=== PATIENT | female | born 2000 | race Caucasian/White ===

== ENCOUNTER 2018-01-25 21:39 | Emergency (ER) | payer BC ==
[2018-01-25] MEDS ORDERED: diphenhydrAMINE 50 MG/ML SDV IM ONE (21:54)
[2018-01-25] MEDS ORDERED: Ondansetron 4 MG Tab.DIS PO ONE (21:54)
--- NOTE | 2018-01-25 22:23 | EDM.PDOC ---
ED HPI GENERAL MEDICAL PROBLEM - General Chief Complaint: Allergic Reaction Stated Complaint: poss allergic reaction rice stuck in nose Time Seen by Provider: 01/25/18 22:00 Source of Information: Reports: Patient History Limitations: Reports: No Limitations - History of Present Illness INITIAL COMMENTS - FREE TEXT/NARRATIVE: 17-year-old female presents for evaluation treatment of a possible allergic reaction as well some rice stuck in her nose. [facility] She ate chicken and shrimp. She states that she did not feel well after eating. She went home and she vomited. She reports that she had food coming out of her nose. States his since this occurred she feels that her nose and sinuses are plugged. They attempted to do a nasal rinse but she continues to have discomfort. She is also complaining of right ear pain. Patient has not vomited in the last hour. She reports some abdominal discomfort that has now mostly improved. The nausea has also improved. No diarrhea. She denies any throat swelling or throat pain. No chest pain or shortness of breath. Treatments JOURNAL CLERK: Reports: Other (see below) Other Treatments JOURNAL CLERK: none - Related Data Allergies Allergy/AdvReac Type Severity Reaction Status Date / Time No Known Allergies Allergy Verified 01/25/18 21:51 Home Meds: Home Meds Ondansetron [Zofran ODT] 4 mg PO Q6H PRN #20 tab.dis 01/25/18 [Rx] Past Medical History Musculoskeletal History: Reports: Other (See Below) Other Musculoskeletal History: 2 foot surgeries - Past Surgical History HEENT Surgical History: Reports: Tonsillectomy Social & Family History - Tobacco Use Smoking Status *Q: Never Smoker - Caffeine Use Caffeine Use: Reports: Coffee - Recreational Drug Use Recreational Drug Use: No ED ROS ALLERGIC REACTION - Review of Systems Review Of Systems: See Below HEENT: Reports: Ear Pain (right), Sinus Problem (discomfort and pressure), Throat Pain. Denies: Throat Swelling Respiratory: Denies: Shortness of Breath, Cough Cardiovascular: Denies: Chest Pain GI/Abdominal: Reports: Abdominal Pain (epigastric, upper abdomen), Vomiting. Denies: Diarrhea ED EXAM GENERAL NO PERIP PULSE - Physical Exam Exam: See Below Exam Limited By: No Limitations General Appearance: Alert, WD/WN, Anxious, Mild Distress Eye Exam: Bilateral Eye: Normal Inspection Ears: Normal External Exam, Other (right TM perforation to the9 o'clock to the 12 o'clock position) Nose: Normal Inspection, Other (swollen nasal turbinates) Throat/Mouth: Normal Inspection, Normal Lips, Normal Oropharynx, Normal Voice, No Airway Compromise, Other (no uvula swelling) Neck: Normal Inspection Respiratory/Chest: No Respiratory Distress, Lungs Clear, Normal Breath Sounds Cardiovascular: Normal Peripheral Pulses, Regular Rate, Rhythm, No Murmur GI/Abdominal: Normal Bowel Sounds, Soft, Non-Tender Neurological: Alert, Oriented, Normal Cognition Psychiatric: Normal Affect, Normal Mood Skin Exam: Warm, Dry, Normal Color Course - Vital Signs Last Recorded V/S: Last Vital Signs Temp 36.9 C 01/25/18 21:49 Pulse 60 01/25/18 23:07 Resp 18 01/25/18 23:07 BP 113/86 01/25/18 23:07 Pulse Ox 99 01/25/18 23:07 - Orders/Labs/Meds Meds: Medications Discontinued Medications Generic Name Dose Route Start Last Admin Trade Name Ute PRN Reason Stop Dose Admin Diphenhydramine HCl 50 mg 01/25/18 21:54 01/25/18 22:07 Benadryl IM 01/25/18 21:55 50 mg ONETIME ONE Administration Ondansetron HCl 4 mg 01/25/18 21:54 01/25/18 22:07 Zofran Odt PO 01/25/18 21:55 4 mg ONETIME ONE Administration - Re-Assessments/Exams Free Text/Narrative Re-Assessment/Exam: 01/25/18 22:50 I checked on the patient. She has not had much relief with the Benadryl as far as the discomfort to her sinuses. Nausea has improved. She has some mild discomfort in her abdomen she feels like she might have some diarrhea-like stools. I feel the nausea, vomiting and diarrhea is likely food poisoning than a food intolerance but time will tell she develops any diarrhea with this. She has some lettuce with her meal and there has been an outbreak of Escherichia coli with lettuce. Will give her some Zofran to help with the nausea encourage clear fluids and a bland diet. She does have small rupture of her right tympanic membrane at the very top of her ear. I will have her follow-up with family medicine for recheck of this week. Also to determine if she is developing anything like a sinus infection or if she does have any retained foreign bodies (ie rice) in the nares. At the time I cannot see past her swollen turbinates. Encouraged to use ibuprofen help with the swelling. She may also use Benadryl. Discharge instructions as documented. Departure - Departure Time of Disposition: 22:51 Disposition: Home, Self-Care 01 Condition: Fair Clinical Impression: Vomiting - Discharge Information Prescriptions: Ondansetron [Zofran ODT] 4 mg PO Q6H PRN #20 tab.dis PRN Reason: Nausea Instructions: Vomiting, Adult Referrals: PCP,None [Primary Care Provider] - Alyse Maddox PA-C [Physician Corporate Safety Director] - Forms: ED Department Discharge Additional Instructions: Take the Zofran 1 tab sublingual every 6-8 hours as needed for nausea. May also use [id number] ibuprofen or Benadryl as needed for discomfort and swelling. Clear fluids and a bland diet as tolerated. Iron diet recommendations include bread, applesauce, soup broth, crackers, etc. Follow-up with family medicine later this week for recheck of your ear, nose and sinuses. Recommend Deepthi Stratton at the [facility]. Call [phone] to schedule an appointment with her. Please return to the ER if your symptoms change or worsen.
== END 2018-01-25 23:00 | disposition home or self-care (01) ==
LOC: JD.ED 21:39
DX: R11.10 Vomiting, unspecified (principal)
CPT/HCPCS: 96372; 99283; A9270; J1200

== ENCOUNTER 2021-01-15 13:32 | Emergency (ER) | payer BC ==
--- NOTE | 2021-01-15 15:22 | EDM.PDOC ---
ED HPI GENERAL MEDICAL PROBLEM - General Chief Complaint: Neuro Symptoms/Deficits Stated Complaint: BODY TINGLES/NUMBNESS Time Seen by Provider: 01/15/21 13:55 Source of Information: Reports: Patient, RN Notes Reviewed - History of Present Illness INITIAL COMMENTS - FREE TEXT/NARRATIVE: 20 yr old female with onset of numbness and tingling hips and bilat lower extrem yesterday, today the numbness and tingling is up to her upper chest and back. She did see her chiropractor this morning, has multiple "adjustents" but that has not helped. No focal weakness. No difficulty walking. No fever, chills, Trejo, nausea or vomiting. Right Neck Pain Score (Numeric/FACES): 3 - Related Data Allergies Allergy/AdvReac Type Severity Reaction Status Date / Time acetaminophen [From Percocet] Allergy Severe Hives Verified 01/15/21 13:53 adhesive Allergy Severe Hives Verified 01/15/21 13:49 aluminum Allergy Severe Hives Verified 01/15/21 13:53 cefdinir Allergy Severe Hives Verified 01/15/21 13:53 cyclobenzaprine Allergy Severe Hives Verified 01/15/21 13:49 [From Flexeril] ibuprofen Allergy Severe Hives Verified 01/15/21 13:49 oxycodone [From Percocet] Allergy Severe Hives Verified 01/15/21 13:53 shellfish derived Allergy Severe Anaphylactic Verified 01/15/21 13:49 Shock zinc Allergy Severe Hives Verified 01/15/21 13:49 Home Meds: Home Meds Ascorbate Calcium [Vitamin C] 500 mg PO DAILY 01/15/21 [History] Cholecalciferol (Vitamin D3) [Vitamin D] 5,000 unit PO DAILY 01/15/21 [History] EPINEPHrine [Epipen] 0.3 mg IM ASDIRECTED PRN 01/15/21 [History] Loratadine [Claritin] 10 mg PO DAILY 01/15/21 [History] Mv-Min/Iron/Folic/Calcium/Vitk [Women's Multivitamin Tablet] 1 tab PO DAILY 01/15/21 [History] Vitamin B Complex 1 each PO DAILY 01/15/21 [History] desogestreL-ethinyl estradioL [Desogest-Eth Estra 0.15-0.03MG] 1 each PO DAILY 01/15/21 [History] Past Medical History Musculoskeletal History: Reports: Other (See Below) Other Musculoskeletal History: 2 foot surgeries Endocrine/Metabolic History: Reports: Obesity/BMI 30+ - Past Surgical History HEENT Surgical History: Reports: Tonsillectomy GI Surgical History: Reports: Cholecystectomy Musculoskeletal Surgical History: Reports: Other (See Below) Other Musculoskeletal Surgeries/Procedures:: 2 foot surgeries Social & Family History - Tobacco Use Tobacco Use Status *Q: Never Tobacco User - Caffeine Use Caffeine Use: Reports: Coffee - Recreational Drug Use Recreational Drug Use: No ED ROS GENERAL - Review of Systems Review Of Systems: See Below Constitutional: Denies: Fever, Chills, Malaise, Weakness HEENT: Reports: No Symptoms Respiratory: Denies: Shortness of Breath, Cough Cardiovascular: Denies: Chest Pain GI/Abdominal: Denies: Abdominal Pain, Diarrhea, Nausea, Vomiting Musculoskeletal: Denies: Leg Pain Skin: Denies: Rash Neurological: Reports: Numbness, Tingling. Denies: Trouble Speaking, Difficulty Walking, Weakness ED EXAM, NEURO - Physical Exam Exam: See Below General Appearance: Alert, No Apparent Distress Eye Exam: Bilateral Eye: PERRL Throat/Mouth: Normal Inspection, Normal Oropharynx Head Exam: Atraumatic Neck: Supple Respiratory/Chest: No Respiratory Distress, Lungs Clear, Normal Breath Sounds Cardiovascular: Regular Rate, Rhythm GI/Abdominal: Soft, Non-Tender Neurological: Alert, No Motor/Sensory Deficits, Oriented x 3 Extremities: Normal Inspection, Normal Range of Motion, No Pedal Edema Skin Exam: Warm, Dry, Normal Color, No Rash Course - Vital Signs Last Recorded V/S: Last Vital Signs Temp 97.9 F 01/15/21 13:45 Pulse 78 01/15/21 13:45 Resp 16 01/15/21 13:45 BP 150/95 H 01/15/21 13:45 Pulse Ox 99 01/15/21 13:45 - Orders/Labs/Meds Labs: Laboratory Tests 01/15/21 01/15/21 Range/Units 14:36 14:36 WBC 9.41 (3.98-10.04) K/mm3 RBC 5.05 (3.98-5.22) M/mm3 Hgb 14.4 (11.2-15.7) gm/dl Hct 41.5 (34.1-44.9) % MCV 82.2 (79.4-94.8) fl MCH 28.5 (25.6-32.2) pg MCHC 34.7 (32.2-35.5) g/dl RDW Std Deviation 43.2 (36.4-46.3) fL Plt Count 394 H (182-369) K/mm3 MPV 8.6 L (9.4-12.3) fl Neut % (Auto) 62.3 (34.0-71.1) % Lymph % (Auto) 30.3 (19.3-51.7) % [place] % (Auto) 6.6 (4.7-12.5) % Eos % (Auto) 0.5 L (0.7-5.8) Baso % (Auto) 0.2 (0.1-1.2) % Neut # (Auto) 5.86 (1.56-6.13) K/mm3 Lymph # (Auto) 2.85 (1.18-3.74) K/mm3 [place] # (Auto) 0.62 H (0.24-0.36) K/mm3 Eos # (Auto) 0.05 (0.04-0.36) K/mm3 Baso # (Auto) 0.02 (0.01-0.08) K/mm3 Sodium 140 (136-145) mEq/L Potassium 3.4 L (3.5-5.1) mEq/L Chloride 103 (98-107) mEq/L Carbon Dioxide 26 (21-32) mEq/L Anion Gap 14.4 (5-15) BUN 8 (7-18) mg/dL Creatinine 0.8 (0.55-1.02) mg/dL Est Cr Clr Drug Dosing 91.24 mL/min Estimated GFR (MDRD) > 60 (>60) mL/min BUN/Creatinine Ratio 10.0 L (14-18) Glucose 90 (74-106) mg/dL Calcium 8.8 (8.5-10.1) mg/dL Magnesium 2.5 H (1.8-2.4) mg/dl Total Bilirubin 0.4 (0.2-1.0) mg/dL AST 20 (15-37) U/L ALT 24 (14-59) U/L Alkaline Phosphatase 67 (46-116) U/L Total Protein 7.8 (6.4-8.2) g/dl Albumin 3.1 L (3.4-5.0) g/dl Globulin 4.7 gm/dL Albumin/Globulin Ratio 0.7 L (1-2) Departure - Departure Time of Disposition: 15:20 Disposition: Home, Self-Care 01 Condition: Fair Clinical Impression: Paresthesia - Discharge Information Instructions: Paresthesia, [id number] Referrals: PCP,None [Primary Care Provider] - Forms: ED Department Discharge Additional Instructions: Your potassium was mildly low at 3.4, normal 3.5 to 5.0. Bananas and other fruit and vegetables are a good source of potassium. Try eat or 1 or 2 bananas daily the remainder of this week. Follow up clinic if not better within 1 to 2 days as expected or return to ED as needed if symptoms worsening in any way. Sepsis Event Note (ED) - Evaluation Sepsis Screening Result: No Definite Risk - Focused Exam Vital Signs: Vital Signs Temp Pulse Resp BP Pulse Ox 01/15/21 13:45 97.9 F 78 16 150/95 H 99
== END 2021-01-15 15:43 | disposition home or self-care (01) ==
LOC: JD.ED 13:32
DX: R20.2 Paresthesia of skin (principal); E66.9 Obesity, unspecified; Z88.1 Allergy status to other antibiotic agents; Z91.018 Allergy to other foods; Z88.5 Allergy status to narcotic agent; Z88.8 Allergy status to other drugs, medicaments and biological substances; Z68.31 Body mass index [BMI] 31.0-31.9, adult
CPT/HCPCS: 36415; 80053; 83735; 85025; 99282; 99284

== ENCOUNTER 2021-01-23 09:03 | Emergency (ER) | payer BC ==
--- NOTE | 2021-01-23 09:42 | EDM.PDOC ---
ED HPI GENERAL MEDICAL PROBLEM - General Chief Complaint: Headache Stated Complaint: HEADACHE/POST LUMBAR PUNCTURE Time Seen by Provider: 01/23/21 09:36 Source of Information: Reports: Patient History Limitations: Reports: No Limitations - History of Present Illness INITIAL COMMENTS - FREE TEXT/NARRATIVE: 20-year-old female presents to the ED for evaluation of a severe headache that is worsened when she stands up. Patient had a lumbar puncture performed on Friday, January 19 for multiple sclerosis. She they identified on MRI that she has signs and symptoms of MS. She therefore stayed in the hospital for pulse therapy with steroids using 1 g of Solu-Medrol daily. However within 2 days of starting therapy she broke out in hives and had an allergic response. They kept her in the hospital 1 more day and she was discharged yesterday. The ride home was awful in terms of sitting up caused increased headache nausea and vomiting. She is no better overnight. She is better if she is lying flat. Bright lights make her headache worse. Headache for the most part is bilateral and behind her eyes. Onset: Sudden Onset Date: 01/20/21 Duration: Hour(s):, Constant Location: Reports: Head (Throbbing pulsating headache primarily retro-ocular bilaterally.) Quality: Reports: Ache, Throbbing, Other (Pulsating.) Severity: Moderate Improves with: Reports: Rest (8 out of 10. Lying flat helps.) Worsens with: Reports: Other (Standing up and sitting up make the headache much worse. i.e. traction headache) Associated Symptoms: Reports: Headaches, Loss of Appetite, Malaise, Nausea/Vomiting, Weakness. Denies: No Other Symptoms, Confusion, Chest Pain, Cough, cough w sputum, Fever/Chills, Seizure, Shortness of Breath, Syncope Treatments HORSE RACER: Reports: Other (see below) Left Frontal Headache Pain Score (Numeric/FACES): 8 - Related Data Allergies Allergy/AdvReac Type Severity Reaction Status Date / Time acetaminophen [From Percocet] Allergy Severe Hives Verified 01/23/21 09:12 adhesive Allergy Severe Hives Verified 01/23/21 09:12 aluminum Allergy Severe Hives Verified 01/23/21 09:12 cefdinir Allergy Severe Hives Verified 01/23/21 09:12 cyclobenzaprine Allergy Severe Hives Verified 01/23/21 09:12 [From Flexeril] ibuprofen Allergy Severe Hives Verified 01/23/21 09:12 oxycodone [From Percocet] Allergy Severe Hives Verified 01/23/21 09:12 shellfish derived Allergy Severe Anaphylactic Verified 01/23/21 09:12 Shock zinc Allergy Severe Hives Verified 01/23/21 09:12 steroids Allergy Hives Uncoded 01/23/21 09:12 Home Meds: Home Meds Ascorbate Calcium [Vitamin C] 500 mg PO DAILY 01/15/21 [History] Cholecalciferol (Vitamin D3) [Vitamin D] 5,000 unit PO DAILY 01/15/21 [History] EPINEPHrine [Epipen] 0.3 mg IM ASDIRECTED PRN 01/15/21 [History] Loratadine [Claritin] 10 mg PO DAILY 01/15/21 [History] Mv-Min/Iron/Folic/Calcium/Vitk [Women's Multivitamin Tablet] 1 tab PO DAILY 01/15/21 [History] Vitamin B Complex 1 each PO DAILY 01/15/21 [History] desogestreL-ethinyl estradioL [Desogest-Eth Estra 0.15-0.03MG] 1 each PO DAILY 01/15/21 [History] Ondansetron [Zofran] 4 mg BUCCAL Q6H PRN #8 tab 01/23/21 [Rx] Past Medical History HEENT History: Reports: Impaired Vision Other HEENT History: wears eyeglasses. Genitourinary History: Reports: Pyelonephritis Musculoskeletal History: Reports: Other (See Below) Other Musculoskeletal History: 2 foot surgeries Neurological History: Reports: MS Endocrine/Metabolic History: Reports: Obesity/BMI 30+ - Infectious Disease History Infectious Disease History: Reports: Chicken Pox - Past Surgical History HEENT Surgical History: Reports: Tonsillectomy GI Surgical History: Reports: Cholecystectomy Musculoskeletal Surgical History: Reports: Other (See Below) Other Musculoskeletal Surgeries/Procedures:: 2 foot surgeries Social & Family History - Tobacco Use Tobacco Use Status *Q: Never Tobacco User Second Hand Smoke Exposure: No - Caffeine Use Caffeine Use: Reports: Coffee - Recreational Drug Use Recreational Drug Use: No - Living Situation & Occupation Living situation: Reports: Single Occupation: Student ED ROS GENERAL - Review of Systems Review Of Systems: See Below Constitutional: Reports: Malaise, Fatigue, Decreased Appetite. Denies: Fever, Chills, Weight Loss HEENT: Reports: No Symptoms Respiratory: Reports: No Symptoms Cardiovascular: Reports: No Symptoms Endocrine: Reports: Fatigue GI/Abdominal: Reports: Decreased Appetite, Nausea, Vomiting : Reports: No Symptoms Musculoskeletal: Reports: No Symptoms Skin: Reports: No Symptoms Neurological: Reports: Dizziness, Headache, Numbness, Pre-Existing Deficit, Tingling, Difficulty Walking, Weakness, Gait Disturbance (Recently diagnosed with multiple sclerosis.). Denies: Confusion, Paresthesia, Tremors, Trouble Speaking Psychiatric: Reports: No Symptoms Hematologic/Lymphatic: Reports: No Symptoms Immunologic: Reports: No Symptoms - Physical Exam Exam: See Below Exam Limited By: Other (Examined in a darkened room due to her severity of her headache. Vital signs show temperature 35.2. This is likely correct. Heart rate was 72 and sinus respiratory is 18 with O2 sats of 99% room air BP 131/76) General Appearance: Alert, Mild Distress, Other Eye Exam: Bilateral Eye: Normal Inspection, PERRL (No gaze palsy) Throat/Mouth: Normal Inspection, Normal Lips, Normal Teeth, Normal Oropharynx Head Exam: Atraumatic, Normocephalic Neck: Normal Inspection, Supple, Non-Tender, Full Range of Motion. No: Lymphadenopathy (L), Lymphadenopathy (R) Respiratory/Chest: No Respiratory Distress, Lungs Clear, Normal Breath Sounds, No Accessory Muscle Use Cardiovascular: Normal Peripheral Pulses, Regular Rate, Rhythm, No Edema, No Gallop, No Murmur, No Rub GI/Abdominal: Normal Bowel Sounds, Soft, Non-Tender, No Organomegaly, No Abnormal Bruit, No Mass, Pelvis Stable Neuro Exam (Abbreviated): Alert, Oriented, CN II-XII Intact, Normal Cognition. No: Normal Gait Back Exam: Normal Inspection, Other (No subcu swelling or signs of infection at the site of lumbar puncture) Extremities: Normal Inspection, Normal Range of Motion, Non-Tender, No Pedal Edema Psychiatric: Flat Affect Skin Exam: Warm, Dry, Intact, Normal Color, No Rash Course - Vital Signs Last Recorded V/S: Last Vital Signs Temp 35.2 C L 01/23/21 09:10 Pulse 72 01/23/21 09:10 Resp 18 01/23/21 09:10 BP 131/76 01/23/21 09:10 Pulse Ox 99 01/23/21 09:10 - Orders/Labs/Meds Orders: Active Orders 24 hr Category Date Time Status Dextrose 5%-0.9% NaCl [Dextrose 5%-Normal Saline] 1,000 Med 01/23/21 09:45 Active ml IV ASDIRECTED Dextrose 5%-0.9% NaCl [Dextrose 5%-Normal Saline] 500 Med 01/23/21 11:45 Active ml IV ASDIRECTED Ketorolac [Toradol] Med 01/23/21 11:30 Active 30 mg IVPUSH ONETIME Lactated Ringers [Ringers, Lactated] 1,000 ml Med 01/23/21 11:30 Active IV .BOLUS Medication Orders Dextrose/Sodium Chloride (Dextrose 5%-Normal Saline) 1,000 mls @ 999 mls/hr IV ASDIRECTED [facility] Last Admin: 01/23/21 09:58 Dose: 999 mls/hr Documented by: RAYMOND Lactated Ringer's (Ringers, Lactated) 1,000 mls @ 500 mls/hr IV .BOLUS GAMALIEL Dextrose/Sodium Chloride (Dextrose 5%-Normal Saline) 500 mls @ 999 mls/hr IV ASDIRECTED [facility] Last Admin: 01/23/21 11:30 Dose: 999 mls/hr Documented by: RAYMOND Ketorolac Tromethamine (Ketorolac 30 Mg/Ml Sdv) 30 mg IVPUSH ONETIME [facility] Last Admin: 01/23/21 11:27 Dose: 30 mg Documented by: RAYMOND Labs: Laboratory Tests 01/23/21 Range/Units 10:07 Sodium 137 (136-145) mEq/L Potassium 3.4 L (3.5-5.1) mEq/L Chloride 103 (98-107) mEq/L Carbon Dioxide 23 (21-32) mEq/L Anion Gap 14.4 (5-15) BUN 13 (7-18) mg/dL Creatinine 0.8 (0.55-1.02) mg/dL Est Cr Clr Drug Dosing 91.24 mL/min Estimated GFR (MDRD) > 60 (>60) mL/min BUN/Creatinine Ratio 16.3 (14-18) Glucose 147 H (70-99) mg/dL Calcium 8.2 L (8.5-10.1) mg/dL Magnesium 1.8 (1.8-2.4) mg/dL Total Bilirubin 0.7 (0.2-1.0) mg/dL AST 12 L (15-37) U/L ALT 36 (14-59) U/L Alkaline Phosphatase 57 (46-116) U/L Total Protein 6.8 (6.4-8.2) g/dl Albumin 2.7 L (3.4-5.0) g/dl Globulin 4.1 gm/dL Albumin/Globulin Ratio 0.7 L (1-2) Meds: Medications Generic Name Dose Route Start Last Admin Trade Name Ute PRN Reason Stop Dose Admin Dextrose/Sodium Chloride 1,000 mls @ 999 mls/hr 01/23/21 09:45 01/23/21 09:58 Dextrose 5%-Normal Saline IV 999 mls/hr ASDIRECTED GAMALIEL Administration Lactated Ringer's 1,000 mls @ 500 mls/hr 01/23/21 11:30 Ringers, Lactated IV .BOLUS GAMALIEL Dextrose/Sodium Chloride 500 mls @ 999 mls/hr 01/23/21 11:45 01/23/21 11:30 Dextrose 5%-Normal Saline IV 999 mls/hr ASDIRECTED GAMALIEL Administration Ketorolac Tromethamine 30 mg 01/23/21 11:30 01/23/21 11:27 Ketorolac 30 Mg/Ml Sdv IVPUSH 30 mg ONETIME GAMALIEL Administration Discontinued Medications Generic Name Dose Route Start Last Admin Trade Name Ute PRN Reason Stop Dose Admin Diphenhydramine HCl 12.5 mg 01/23/21 10:00 01/23/21 10:15 Diphenhydramine 50 Mg/Ml Sdv IVPUSH 01/23/21 10:01 12.5 mg ONETIME ONE Administration Hydromorphone HCl 0.5 mg 01/23/21 10:27 01/23/21 11:20 Hydromorphone 0.5 Mg/0.5 Ml Syringe IVPUSH 01/23/21 10:28 0.5 mg ONETIME ONE Administration Hydromorphone HCl 0.5 mg 01/23/21 11:20 Hydromorphone 0.5 Mg/0.5 Ml Syringe IVPUSH 01/23/21 11:21 ONETIME ONE Metoclopramide HCl 7.5 mg 01/23/21 09:46 01/23/21 10:12 Metoclopramide 10 Mg/2 Ml Sdv IVPUSH 01/23/21 09:47 7.5 mg ONETIME ONE Administration - Radiology Interpretation Free Text/Narrative:: 20-year-old female presents to the ED with a post spinal headache. She had a's lumbar puncture performed on Friday, January 19 in [place] for multiple sclerosis. MRI identified multiple small white patches throughout the brain compatible with MS. She was started on pulse therapy with corticosteroids 1 g daily which she tolerated on Friday and Friday but then broke out in a rash i.e. hives. They had to stop the pulse therapy. She was discharged home yesterday with a bad headache. She had intermittent nausea and vomiting worsening of her headaches sitting in the car on the way here in today is no better. Headache is more way worse if she tries to sit or stand. Neuro exam is intact. Plan IV fluids D5 normal saline at open Reglan 7.5 mg IV with Benadryl 12.5 mg IV and Dilaudid 0.5 mg IV - Re-Assessments/Exams Free Text/Narrative Re-Assessment/Exam: 01/23/21 11:21 patient has completed a full liter of IV fluids and still has a headache. She was able to walk back and forth from the bathroom very well. No loss of balance. Headache is definitely worse with standing. I am going to give her another 500 mils of lactated Ringer's IV. We will repeat Dilaudid 0.5 mg IV and add Toradol 30 mg IV for headache relief as well. 01/23/21 12:15: Patient did not get the first dose of Dilaudid that I had prescribed. After receiving the Dilaudid and another 500 mils of normal saline she is able to walk around her room with no headache. Therefore she only received the 1 dose of Dilaudid 0.5 mg IV and no Toradol. She will be discharged home on Zofran 4 mg sublingual every 4-6 hours as needed for nausea relief. She will continue plenty of fluids including at least 220 ounce Gatorade's per day for the next 3 days to maintain hydration and electrolyte balance. She will return to the ED if headache worsens again. Departure - Departure Time of Disposition: 12:21 Disposition: Home, Self-Care 01 Condition: Fair Clinical Impression: Spinal puncture headache - Discharge Information *PRESCRIPTION DRUG MONITORING PROGRAM REVIEWED*: Not Applicable *COPY OF PRESCRIPTION DRUG MONITORING REPORT IN PATIENT DONY: Not Applicable Prescriptions: Ondansetron [Zofran] 4 mg BUCCAL Q6H PRN #8 tab PRN Reason: nausea or vomiting Instructions: Spinal Headache Referrals: PCP,None [Primary Care Provider] - Forms: ED Department Discharge Additional Instructions: Evaluation in the emergency room today in regards to a persistent headache worsened by standing i.e. traction component to the headache. This is been present since discharge from the hospital after having a lumbar puncture performed on January 19 as part of work-up for multiple sclerosis. You did receive pulse therapy with Solu-Medrol intravenously for 2 days while in hospital but unfortunately developed hives secondary to the medication and it had to be discontinued. In the emergency room he received a liter and a half of intravenous fluids to rehydrate you and Reglan IV for nausea relief. Dilaudid 0.5 mg IV for headache relief. Treatment at home is to continue plenty of fluids such as Gatorade or Powerade ideally 2 Gatorade or Powerade per day for the next 3 days to maintain hydration. Zofran 4 mg on the tongue every 4-6 luh rs necessary for nausea relief. If the headache worsens in spite of treatment as above return to the ED. Sepsis Event Note (ED) - Evaluation Sepsis Screening Result: No Definite Risk - Focused Exam Vital Signs: Vital Signs Temp Pulse Resp BP Pulse Ox 01/23/21 09:10 35.2 C L 72 18 131/76 99 - My Orders Last 24 Hours: My Active Orders 01/23/21 09:45 Dextrose 5%-0.9% NaCl [Dextrose 5%-Normal Saline] 1,000 ml IV ASDIRECTED 01/23/21 11:30 Ketorolac [Toradol] 30 mg IVPUSH ONETIME Lactated Ringers [Ringers, Lactated] 1,000 ml IV .BOLUS 01/23/21 11:45 Dextrose 5%-0.9% NaCl [Dextrose 5%-Normal Saline] 500 ml IV ASDIRECTED - Assessment/Plan Last 24 Hours: My Active Orders 01/23/21 09:45 Dextrose 5%-0.9% NaCl [Dextrose 5%-Normal Saline] 1,000 ml IV ASDIRECTED 01/23/21 11:30 Ketorolac [Toradol] 30 mg IVPUSH ONETIME Lactated Ringers [Ringers, Lactated] 1,000 ml IV .BOLUS 01/23/21 11:45 Dextrose 5%-0.9% NaCl [Dextrose 5%-Normal Saline] 500 ml IV ASDIRECTED
[2021-01-23] MEDS ORDERED: Dextrose 5%-0.9% NaCl 1,000 ML IV SCH (09:45)
[2021-01-23] MEDS ORDERED: Metoclopramide 10 MG/2 ML SDV IVPUSH ONE (09:46)
[2021-01-23] MEDS ORDERED: diphenhydrAMINE 50 MG/ML SDV IVPUSH ONE (10:00)
[2021-01-23] MEDS ORDERED: HYDROmorphone 0.5 MG/0.5 ML Syringe IVPUSH ONE ×2 (10:27→11:20)
[2021-01-23] MEDS ORDERED: Ketorolac 30 MG/ML SDV IVPUSH SCH (11:30)
[2021-01-23] MEDS ORDERED: Lactated Ringers 1,000 ML IV SCH (11:30)
[2021-01-23] MEDS ORDERED: Dextrose 5%-0.9% NaCl 500 ML IV SCH (11:45)
== END 2021-01-23 12:35 | disposition home or self-care (01) ==
LOC: JD.ED 09:03
DX: G97.1 Other reaction to spinal and lumbar puncture (principal); G35 Multiple sclerosis; E66.9 Obesity, unspecified; Z68.30 Body mass index [BMI] 30.0-30.9, adult; Z88.6 Allergy status to analgesic agent; Z91.048 Other nonmedicinal substance allergy status; Z88.1 Allergy status to other antibiotic agents; Z88.5 Allergy status to narcotic agent; Z91.013 Allergy to seafood; Z88.8 Allergy status to other drugs, medicaments and biological substances
CPT/HCPCS: 36415; 80053; 83735; 96374; 96375; 99284; J1170; J1200; J1885; J2765; J7042

== ENCOUNTER 2022-05-15 20:03 | Emergency (ER) | payer BC, OTHER ==
[2022-05-15] MEDS ORDERED: Sodium Chloride 0.9% 1,000 ML IV ONE (20:31)
[2022-05-15] MEDS ORDERED: Adenosine 6 MG/2 ML SDV IVPUSH ONE ×2 (20:33→20:54)
[2022-05-15] MEDS ORDERED: Magnesium Sulfate (4.06 MEQ/ML) 5 GM/10 ML SDV IV ONE (20:45)
[2022-05-15] MEDS ORDERED: Diltiazem 25 MG/5 ML SDV IVPUSH ONE (21:08)
[2022-05-15] MEDS ORDERED: Diltiazem 125 MG in Sodium Chloride 0.9% 100 ML IV SCH (22:00)
[2022-05-15 22:19] LABS: CORONAVIRUS COVID-19 NAA NEGATIVE (NEGATIVE)
[2022-05-16] MEDS ORDERED: Heparin Sodium 5,000 Units/ML Vial IVPUSH ONE (01:29)
[2022-05-16] MEDS ORDERED: Heparin Sodium/D5W 25,000 UNITS/500 ML BAG IV SCH (01:30)
[2022-05-16] MEDS ORDERED: Digoxin 500 MCG/2 ML Amp IVPUSH ONE (01:32)
[2022-05-16] MEDS ORDERED: Midazolam 1 MG/ML 5 ML SDV IVPUSH ONE (03:13)
[2022-05-16] MEDS ORDERED: fentaNYL 100 MCG/2 ML SDV IVPUSH ONE ×2 (03:13→03:30)
[2022-05-16] MEDS ORDERED: fentaNYL 100 MCG/2 ML SDV ONE (03:15)
[2022-05-16] MEDS ORDERED: Midazolam 5 MG/ML 10 ML MDV ONE (03:16)
[2022-05-16] MEDS: Midazolam 5 MG/ML 10 ML MDV IV STA ×2 (03:26→07:50)
[2022-05-16] MEDS ORDERED: Midazolam 5 MG/ML 10 ML MDV IV ONE (03:26)
== END 2022-05-16 04:20 ==
LOC: JD.ED 20:03
DX: I48.91 Unspecified atrial fibrillation (principal); E66.9 Obesity, unspecified; Z68.32 Body mass index [BMI] 32.0-32.9, adult; Z20.822 Contact with and (suspected) exposure to COVID-19; Z91.012 Allergy to eggs; Z91.048 Other nonmedicinal substance allergy status; Z88.8 Allergy status to other drugs, medicaments and biological substances; Z88.1 Allergy status to other antibiotic agents
CPT/HCPCS: 0240U; 36415; 71045; 80053; 84443; 84484; 85007; 85027; 85730; 92960; 93005; 96361; 96365; 96366; 96367; 96368; 96375; 96376; 99285; J0153; J1160; J1644; J2250; J3010; J3475; J3490; J7030